=== PATIENT | female | born 1990 | race American Indian/Alaskan Native ===

== ENCOUNTER 2018-08-01 18:02 | Outpatient (CLI) | payer MEDICAID ==
[2018-08-01 19:09] LABS: Bacteria,Urine 1+ /HPF (Negative); Bilirubin,Urine NEG (Negative); Blood,Urine MOD (Negative); Color,Urine Yellow (Yellow); Mucus,Urine 1+ /HPF; Protein,Urine <15 mg/dL mg/dL (Negative)
[2018-08-01 19:39] VITALS: BP 110/59
[2018-08-01] MEDS ORDERED: TYLENOL PO ONE (20:00)
== END 2018-08-01 19:42 | disposition home or self-care (01) ==
LOC: TRG 18:02
PROVIDERS: ATTEND Obstetrics & Gynecology
DX: O47.02 False labor before 37 completed weeks of gestation, second trimester (principal); O46.92 Antepartum hemorrhage, unspecified, second trimester; O99.512 Diseases of the respiratory system complicating pregnancy, second trimester; J45.909 Unspecified asthma, uncomplicated; Z3A.21 21 weeks gestation of pregnancy
CPT/HCPCS: 81001